=== PATIENT | male | born 1995 | race Caucasian/White ===

== ENCOUNTER 2020-07-26 23:29 | Emergency (ER) | payer BC ==
[~2020-07-26] VITALS: Ht 182.9 cm; Wt 97.1 kg
--- NOTE | 2020-07-27 00:44 | REPVR ---
PROCEDURE INFORMATION: Exam: US Scrotum and US Duplex Artery and Vein, Scrotum, Complete Exam date and time: 07/26/2020 12:17 AM Age: 24 years old Clinical indication: Scrotum pain; Additional info: Scrotal pain TECHNIQUE: Imaging protocol: Real-time ultrasound of the scrotum. Real-time duplex ultrasound scan of the arterial and venous flow of the scrotum with B-mode, color Doppler flow and spectral waveform analysis. Complete exam. Duplex images required to evaluate vascular conditions. COMPARISON: No relevant prior studies available. FINDINGS: Right testicle: Right testicle measures 4.3 x 2.8 x 2.6 cm.. No mass. No torsion. Normal Duplex waveforms and color doppler. Left testicle: Left testicle measures 4.5 x 2.6 x 2.9 cm. No mass. No torsion. Normal Duplex waveforms and color doppler. Epididymides: Normal. Scrotum: Small left varicocele. IMPRESSION: Normal scrotal ultrasound. No evidence of testicular torsion. Electronically signed by: Jose Luis Jacob On 07/27/2020 00:44:07 AM
[2020-07-27] MEDS ORDERED: cefTRIAXone SOD 250MG VIAL (J0696 PER 250MG) IM ONE (01:15)
[2020-07-27] MEDS ORDERED: LevoFLOXacin 500 MG TABLET PO ONE (01:15)
[2020-07-27] MEDS ORDERED: IBUPROFEN 800 MG TAB PO ONE (01:15)
[2020-07-27] MEDS ORDERED: LIDOCAINE 1% SDV 5ML VIAL DILUENT ONE (01:15)
[2020-07-27] MEDS ORDERED: IBUP80TA PO (01:24)
[2020-07-27] MEDS ORDERED: LEVO500T3 PO (01:24)
[2020-07-27 02:28] VITALS: BP 137/71
[2020-07-27 03:24] LABS: CHLAMYDIA DNA AMPLIFICATION NEGATIVE (NEGATIVE); GC DNA AMPLIFICATION NEGATIVE (NEGATIVE)
== END 2020-07-27 02:31 | disposition home or self-care (01) ==
LOC: M ED 23:29
DX: N45.1 Epididymitis (principal)
CPT/HCPCS: 76870; 81001; 87491; 87591; 93976; 96372; 99283; J0696